=== PATIENT | female | born 1980 | race Caucasian/White ===

== ENCOUNTER 2018-02-09 14:31 | Emergency (ER) | payer SELFPAY ==
[2018-02-09 15:14] LABS: URINE PH (Dip) POC 6.5 (5.0-8.5)
[2018-02-09 15:14] LABS: URINE BLOOD (Dip) POC Negative (NEGATIVE); URINE GLUCOSE (Dip) POC Negative (NEGATIVE); URINE KETONES (Dip) POC Trace (NEGATIVE); URINE LEUKOCYTE EST (Dip) POC Negative (NEGATIVE); URINE NITRITE (Dip) POC Negative (NEGATIVE); URINE TOTAL PROTEIN POC Negative (NEGATIVE)
== END 2018-02-09 17:15 | disposition home or self-care (01) ==
LOC: FTE 14:31
DX: O36.8311 Maternal care for abnormalities of the fetal heart rate or rhythm, first trimester, fetus 1 (principal); Z3A.12 12 weeks gestation of pregnancy
CPT/HCPCS: 76801; 81003; 81025; 84702; 99284-25

== ENCOUNTER 2018-08-15 17:30 | Inpatient (IN) | payer MEDICAID ==
[2018-08-15] MEDS: OXYTOCIN 30 UNITS/LR 500 ML IV ×3 (17:59→23:40)
[2018-08-15] MEDS ORDERED: OXYTOCIN 30 UNITS/LR 500 ML IV ×2 (18:00→22:30)
[2018-08-15] MEDS ORDERED: CARBOPROST 250 MCG INJ IM ×2 (18:00→22:30)
[2018-08-15] MEDS ORDERED: LIDOCAINE 1% (MPF) 30 ML INJ INJ (18:00)
[2018-08-15] MEDS ORDERED: MISOPROSTOL 200 MCG TAB PR ×2 (18:00→22:30)
[2018-08-15] MEDS ORDERED: METHYLERGONOVINE 0.2 MG INJ IM ×2 (18:00→22:30)
[2018-08-15 18:15] LABS: ADD MAN DIFF? NO
[2018-08-15 18:19] LABS: WHITE BLOOD COUNT 13.4 10^3/ul (4.8-10.8)
[2018-08-15 18:19] LABS: BASOPHILS % 0.2 % (0.0-2.0); EOSINOPHILS # 0.1 10^3/ul (0.0-0.5); EOSINOPHILS % 0.4 % (0.0-7.0); HEMATOCRIT 35.9 % (37.0-47.0); HEMOGLOBIN 11.3 g/dl (12.0-16.0); LYMPHOCYTES # 2.1 10^3/ul (0.8-2.9); LYMPHOCYTES % 15.5 % (15.0-51.0); MEAN CORPUSCULAR HEMOGLOBIN 23.5 pg (29.0-33.0); MEAN CORPUSCULAR HGB CONC 31.5 g/dl (32.0-37.0); MEAN CORPUSCULAR VOLUME 74.6 fl (82.0-101.0); MEAN PLATELET VOLUME 9.9 fl (7.4-10.4); MONOCYTE # 0.7 10^3/ul (0.3-0.9); MONOCYTES % 5.3 % (0.0-11.0); NEUTROPHIL # 10.5 10^3/ul (1.6-7.5); NEUTROPHILS % 78.1 % (39.0-77.0); PLATELET COUNT 310 10^3/UL (140-415); RED BLOOD COUNT 4.81 10^6/ul (4.20-5.40); RED CELL DISTRIBUTION WIDTH 15.3 % (11.5-14.5)
[2018-08-15 18:40] LABS: INR 0.89; PROTIME 12.2 Sec (11.9-14.9)
[2018-08-15 18:41] LABS: PARTIAL THROMBOPLASTIN TIME 26.2 Sec (23.0-35.0)
[2018-08-15 19:18] LABS: HEPATITIS B SURFACE ANTIGEN NEGATIVE (NEGATIVE)
[2018-08-15 19:28] LABS: HIV 1&2 ANTIBODY NEGATIVE (NEGATIVE)
[2018-08-15] MEDS ORDERED: SENNA/DOCUSATE NA (8.6MG/50MG) TAB PO (22:30)
[2018-08-15] MEDS ORDERED: NACL 0.9% 3 ML SYG IV (22:30)
[2018-08-15] MEDS ORDERED: DIBUCAINE 1% 30 GM OINT TOP (22:30)
[2018-08-15] MEDS: WITCH HAZEL/GLYCERIN PAD PR (23:35)
[2018-08-15] MEDS: BENZOCAINE 20% 56 ML SPRAY TOP (23:36)
[2018-08-15] MEDS: LANOLIN HPA 1 PKT TOP (23:37)
[2018-08-15] MEDS: IBUPROFEN 600 MG TAB PO (23:38)
[2018-08-16 04:57] LABS: ADD MAN DIFF? NO
[2018-08-16 05:06] LABS: BASOPHILS % 0.2 % (0.0-2.0); EOSINOPHILS # 0.1 10^3/ul (0.0-0.5); EOSINOPHILS % 0.4 % (0.0-7.0); HEMATOCRIT 32.4 % (37.0-47.0); HEMOGLOBIN 10.3 g/dl (12.0-16.0); LYMPHOCYTES # 1.7 10^3/ul (0.8-2.9); LYMPHOCYTES % 11.8 % (15.0-51.0); MEAN CORPUSCULAR HGB CONC 31.8 g/dl (32.0-37.0); MEAN CORPUSCULAR VOLUME 75.3 fl (82.0-101.0); MEAN PLATELET VOLUME 9.6 fl (7.4-10.4); MONOCYTE # 0.9 10^3/ul (0.3-0.9); MONOCYTES % 6.5 % (0.0-11.0); NEUTROPHIL # 11.5 10^3/ul (1.6-7.5); NEUTROPHILS % 80.7 % (39.0-77.0); PLATELET COUNT 262 10^3/UL (140-415); RED CELL DISTRIBUTION WIDTH 15.2 % (11.5-14.5)
[2018-08-16 05:06] LABS: WHITE BLOOD COUNT 14.3 10^3/ul (4.8-10.8)
[2018-08-16] MEDS: IBUPROFEN 600 MG TAB PO ×3 (05:46→18:00)
[2018-08-16 20:12] LABS: RAPID PLASMA REAGIN NONREACTIVE (NR)
[2018-08-17] MEDS: IBUPROFEN 600 MG TAB PO ×3 (00:48→12:00)
[2018-08-17 21:29] LABS: RUBELLA ANTIBODY - IGG 1.33 index
[2018-08-21 12:07] LABS: RUBELLA ANTIBODY - IGM <20.00 AU/mL
== END 2018-08-17 19:04 | disposition home or self-care (01) | DRG 788 ==
LOC: L-D 17:30 → MS1 21:47
PROVIDERS: Obstetrics & Gynecology
PROC: 10D00Z1 Extraction of Products of Conception, Low, Open Approach (ICD-10-PCS; principal; 2018-08-15)
DX: O69.1XX0 Labor and delivery complicated by cord around neck, with compression, not applicable or unspecified (principal); Z3A.38 38 weeks gestation of pregnancy; Z37.0 Single live birth
CPT/HCPCS: 85025; 85610; 85730; 86592; 86703; 86762; 86850; 86900; 86901; 87340